=== PATIENT | male | born 1985 | race Caucasian/White ===

== ENCOUNTER 2018-02-18 19:32 | Emergency (ER) | payer OTHER ==
[~2018-02-18] VITALS: Ht 180.3 cm; Wt 122.7 kg
[2018-02-18] MEDS ORDERED: NITR.4 SL (19:45)
[2018-02-18] MEDS ORDERED: ALPR0.5T8 PO (19:45)
[2018-02-18] MEDS ORDERED: QUET25TA PO (20:00)
[2018-02-18] MEDS ORDERED: SACU1TAB PO (20:00)
[2018-02-18] MEDS ORDERED: DULO60CA44 PO (20:00)
[2018-02-18] MEDS ORDERED: CARV12 PO (20:00)
[2018-02-18] MEDS ORDERED: ATOR40TA28 PO (20:00)
[2018-02-18] MEDS ORDERED: ASPI81 PO (20:00)
[2018-02-18] MEDS ORDERED: RIVA20TA PO (20:00)
[2018-02-18] MEDS ORDERED: AMLO-512 PO (20:00)
[2018-02-18] MEDS ORDERED: OLAN10TA3 PO (20:00)
[2018-02-18] MEDS ORDERED: BUPR75 PO (20:00)
[2018-02-18] MEDS ORDERED: HYDR25TA PO ×2 (20:00)
[2018-02-18 20:40] LABS: BASOPHILS % (AUTO) 0.9 % (0.0-2.0); EOSINOPHILS % (AUTO) 1.8 % (1.0-6.0); HEMATOCRIT 44.5 % (41-53); HEMOGLOBIN 15.5 g/dL (13.5-17.5); LYMPHOCYTES # (AUTO) 1.7 K/uL (1.0-4.8); LYMPHOCYTES % (AUTO) 17.1 % (22.0-44.0); MEAN CORPUSCULAR HEMOGLOBIN 29.6 pg (26.0-34.0); MEAN CORPUSCULAR HGB CONC 34.8 G/dL (31.0-37.0); MEAN CORPUSCULAR VOLUME 85 fL (80-100); MONOCYTES # (AUTO) 0.5 K/uL (0.1-1.0); MONOCYTES % (AUTO) 5.3 % (2.0-9.0); NEUTROPHILS # (AUTO) 7.5 K/uL (1.8-7.7); NEUTROPHILS % (AUTO) 74.9 % (40.0-70.0); PLATELET COUNT (AUTO) 294 K/uL (150-450); RED BLOOD CELL COUNT(AUTO) 5.22 MIL/uL (4.50-5.90); RED CELL DISTRIBUTION WIDTH 14.5 % (11.5-14.5)
[2018-02-18 20:49] LABS: ANION GAP 11 mmol/L (8-16); CALCIUM, TOTAL 9.2 mg/dL (8.8-10.5); CARBON DIOXIDE 27 mmol/L (22-29); CHLORIDE 102 mmol/L (98-107); CREATININE 1.21 mg/dL (0.60-1.30); GLOMERULAR FILTR. RATE CALC > 60 mL/min (>60); GLUCOSE,RANDOM 147 mg/dL (70-110); POTASSIUM 3.7 mmol/L (3.5-5.1); SODIUM SERUM 140 mmol/L (136-145); UREA NITROGEN, BLOOD 15 mg/dL (7-18)
[2018-02-18 20:54] LABS: ALANINE AMINOTRANSFERASE 32 U/L (12-78); ALKALINE PHOSPHATASE 78 U/L (46-116); ASPARTATE AMINOTRANSFERASE 17 U/L (15-37); BILIRUBIN,TOTAL 0.6 mg/dL (0.1-1.0)
[2018-02-18 21:36] LABS: APPEARANCE,URINE SLIGHTLY CLOUDY (CLEAR); BILIRUBIN,URINE NEGATIVE (NEGATIVE); GLUCOSE, URINE (UA) NEGATIVE (NEGATIVE); KETONES,URINE NEGATIVE (NEGATIVE); NITRATE,URINE NEGATIVE (NEGATIVE); OCCULT BLOOD,URINE LARGE (NEGATIVE); PROTEIN,URINE TRACE (NEGATIVE); UROBILINOGEN,URINE 0.2 mg/dL (<=1.0)
[2018-02-18 21:37] LABS: LEUKOCYTE ESTERASE ,URINE MODERATE (NEGATIVE)
[2018-02-18 21:39] LABS: RBC,URINE >100 /HPF (0-2)
[2018-02-18 21:40] LABS: BACTERIA,URINE Moderate /HPF (None Seen); SQUAMOUS EPITHELIAL CELL,UR Moderate /LPF (None Seen)
[2018-02-18 21:41] LABS: AMORPHOUS SEDIMENT,UR Few /LPF (None Seen)
[2018-02-18] MEDS ORDERED: OxyCODONE HCL/ACETAMINOPHEN 5-325 MG TABLET PO ONE (22:15)
[2018-02-18 23:36] VITALS: BP 142/68
== END 2018-02-19 00:37 | disposition home or self-care (01) ==
LOC: EMS 19:33
DX: R07.89 Other chest pain (principal); I51.7 Cardiomegaly; N39.0 Urinary tract infection, site not specified; N20.0 Calculus of kidney; I10 Essential (primary) hypertension; Z91.040 Latex allergy status; Z88.5 Allergy status to narcotic agent
CPT/HCPCS: 74176; 87086; 93005; 99285